=== PATIENT | male | born 1980 | race Two or more races ===

== ENCOUNTER → 2016-11-15 | Outpatient (CLI) | payer BC ==
--- NOTE | 2016-11-15 22:20 | CONS ---
DATE OF CONSULTATION: REASON FOR CONSULTATION: Sleep apnea. 36-year-old male patient who was identified to be an increased risk of sleep apnea during his DOT evaluation. 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 He is obese. He has a BMI of 37.9. He has neck size of 18 inches. He has a Mallampati class III with bilateral enlarged tonsils. He snores; however, he denies ( ) breathing in the middle of the night. He goes to bed around 11:00, wakes up at 6 a.m. in the morning, averages around 6 to 7 hours of sleep without any major difficulties. No falling asleep while driving. No history of any motor vehicle accident because of feeling drowsy or sleepy. His weight has been stable around 250 pounds. [place] score is at 4. No family history for obstructive sleep apnea. PAST MEDICAL HISTORY: Obesity. PAST SURGICAL HISTORY: Oral surgery with tooth extraction in 1995. ALLERGIES: Not known. Medications are none. SOCIAL HISTORY: Nonsmoker. No history of alcohol. No history of IV drugs. FAMILY HISTORY: Negative for sleep apnea. His father had colon cancer. Mother had colon cancer. Father had blood pressure, grandmother had blood pressure. REVIEW OF SYSTEMS: Twelve-point review of systems was done. Positive findings were all mentioned above in the history of present illness. No history of insomnia. No history of nocturia. No grinding of the teeth. No sleepwalking. No dry mouth. No anxiety or panic attacks. No palpitations. No heartburn. No sleep talking. No sleep paralysis. No hallucinations. No cataplexy. No arthritis. BP is 144/81, pulse is 78, respirations 16, temperature 98.3, saturations 100 percent on room air. Weight is 257. Height is 5 foot 9 and BMI is 37.9. GENERAL APPEARANCE: Calm, comfortable. HEENT: Short neck, crowding posterior pharynx. There is no goiter or neck mass. Mallampati Class IV. LUNGS: Clear to auscultation. HEART: Sounds are regular rate and rhythm. Normal S1, S2. No S3, no S4. No murmurs. ABDOMEN: Soft, nontender. No organomegaly. EXTREMITIES: No edema. No cyanosis, or clubbing. IMPRESSION: 1. Sleep apnea suspected, currently under investigation. 2. Obesity with a body mass index of 37.9. 3. Mallampati Class IV, with bilateral tonsillar enlargement. 4. History of snoring. 5. 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 PLAN: 1. Encourage weight loss. 2. Proceed with a screening polysomnogram. 3. Further recommendations are to follow based on the results of the sleep study. CC: [facility]
== END | disposition home or self-care (01) ==
LOC: SLEEP 16:02
PROVIDERS: ATTEND Internal Medicine Critical Care Medicine
DX: E66.9 Obesity, unspecified (principal); J35.1 Hypertrophy of tonsils; Z68.37 Body mass index [BMI] 37.0-37.9, adult
CPT/HCPCS: 99211